=== PATIENT | female | born 1985 | race Caucasian/White ===

== ENCOUNTER 2025-02-19 12:13 | Emergency (ER) | payer SELFPAY ==
[2025-02-19] MEDS ORDERED: Acetaminophen 500 MG TAB ONE (13:30)
== END 2025-02-19 14:50 | disposition home or self-care (01) ==
LOC: ERS 12:13
DX: J06.9 Acute upper respiratory infection, unspecified (principal)
CPT/HCPCS: 71046; 87081; 87428; 87430